=== PATIENT | female | born 1940 | race Caucasian/White ===

== ENCOUNTER 2018-07-14 12:36 | Outpatient (CLI) | payer MEDICARE, OTHER ==
--- NOTE | 2018-07-14 13:30 | RAD ---
PA AND LATERAL CHEST XRAY: DATE: 07/14/18. HISTORY: Dyspnea. COMPARISON: 09/06/09. FINDINGS: The cardiac silhouette and pulmonary vasculature are within normal limits. Again noted is elevation of the right hemidiaphragm. Lungs are clear. Vascular calcifications are seen in the aortic arch. There is bilateral glenohumeral osteoarthropathy again present. Mild degenerative changes are again present in the spine. Vascular calcifications are seen in the abdominal aorta. IMPRESSION: No acute cardiopulmonary process. POS: [facility]
== END 2018-07-14 12:37 | disposition home or self-care (01) ==
LOC: RAD 12:36
PROVIDERS: ATTEND Internal Medicine Critical Care Medicine
DX: R06.00 Dyspnea, unspecified (principal)
CPT/HCPCS: 71046

== ENCOUNTER 2018-08-23 13:45 | Outpatient (CLI) | payer MEDICARE, OTHER | END 2018-08-23 13:46 | disposition home or self-care (01) | LOC: CP 13:45 | PROVIDERS: ATTEND Internal Medicine Critical Care Medicine | DX: R06.00 Dyspnea, unspecified (principal) | CPT/HCPCS: 94060; 94727; 94729 ==